=== PATIENT | male | born 1970 | race Caucasian/White ===

== ENCOUNTER 2016-12-02 12:58 | Emergency (ER) | payer OTHER ==
[~2016-12-02] VITALS: Ht 167.6 cm; Wt 122.5 kg
--- NOTE | 2016-12-02 13:07 | PHYS DOC ---
Adult General Chief Complaint Chief Complaint: LOWER EXT PAIN HPI HPI Patient is a 46-year-old male who was helping move some rock and was pushing up a tree stump when he felt a snap in his right calf area. He says that he cannot bear any weight on it and he feels intense pain and spasm. There is no bony tenderness but he appears to have a small divot in his right calf area. He denies any distal weakness numbness or tingling. Review of Systems Review of Systems Constitutional: Denies fever or chills [] GI: Denies abdominal pain, nausea, vomiting, bloody stools or diarrhea []a or hematuria [] Musculoskeletal: Denies back pain or joint pain [] Integument: Denies abrasions or lacerations Neurologic: Denies headache, focal weakness or sensory changes [] Physical Exam Physical Exam Constitutional: Well developed, well nourished, no acute distress, non-toxic appearance. [] Cardiovascular:Heart rate regular rhythm, no murmur [] Lungs & Thorax: Bilateral breath sounds clear to auscultation [] Abdomen: Bowel sounds normal, soft, no tenderness, no masses, no pulsatile masses. [] Skin: Warm, dry, no erythema, no rash. [] Back: No tenderness, no CVA tenderness. [] Extremities: Right Achilles tendon is intact with negative Braswell test. In his mid right calf there is a small divot that is noticeable especially when compared to left. Compartments soft with no signs of compartment syndrome. Neurologic: Alert and oriented X 3, normal motor function, normal sensory function, no focal deficits noted. [] EKG EKG [] Radiology/Procedures Radiology/Procedures [] Course & Med Decision Making Course & Med Decision Making I do not believe that he suffered an Achilles tear as his Achilles appears quite intact but it does appear that he has a muscle tear in the muscle belly of his calf. He has no distal weakness numbness or tingling on history or physical exam. His compartments are soft and he has strong distal pulses. Patient will be put in an Mathew wrap with a soft ankle splint to ensure partial plantar flexion. He will be made nonweightbearing and told to follow with his primary care provider for an MRI. He can then follow with orthopedic surgery to see if there is any possible surgical procedure that is necessary however he will likely just be nonweightbearing and have it healed over time. Patient aware and agreeable with plan for discharge and verbalized understanding of the need for follow-up in the strict ER return precautions discussed including worsening pain swelling or other general concerns. Boom Disclaimer Dragon Disclaimer This chart was dictated in whole or in part using Voice Recognition software in a busy, high-work load, and often noisy Emergency Department environment. It may contain unintended and wholly unrecognized errors or omissions. Departure Departure: Impression: Primary Impression: Muscle spasm of calf Additional Impression: Muscle tear Disposition: HOME, SELF-CARE Condition: GOOD Referrals: [facility] Patient Instructions: Muscle Tear Additional Instructions: Rest your leg put ice on it elevated and compress it. Take 400 mg of ibuprofen every 6 hours and the Percocet for breakthrough pain. The Valium is for spasm. Try and get an MRI through your PCP and then follow with orthopedic doctor to go over treatment options if necessary. Scripts Diazepam (VALIUM) 5 Mg Tablet 5 MG PO TID, #10 TAB Prov: YOHANNES SOLER DO 12/02/16 Oxycodone Hcl/Acetaminophen (PERCOCET 5-325 MG TABLET) 1 Each Tablet 1-2 TAB PO Q4-6HRS, #20 TAB Prov: YOHANNES SOLER DO 12/02/16 Problem Qualifiers YOHANNES SOLER DO Dec 02, 2016 13:07
[2016-12-02 13:09] VITALS: BP 150/87
[2016-12-02] MEDS ORDERED: DIAZ5TAB PO (13:30)
[2016-12-02] MEDS ORDERED: OXYC-323 PO (13:30)
[2016-12-02] MEDS ORDERED: IBUPROFEN 600 MG TABLET. PO ONE (13:35)
== END 2016-12-02 13:43 | disposition home or self-care (01) ==
LOC: ER 12:58
DX: S86.911A Strain of unspecified muscle(s) and tendon(s) at lower leg level, right leg, initial encounter (principal); W22.8XXA Striking against or struck by other objects, initial encounter; Y93.89 Activity, other specified; Y99.8 Other external cause status; Y92.89 Other specified places as the place of occurrence of the external cause
CPT/HCPCS: 29515; 99284-25

== ENCOUNTER 2017-09-02 16:21 | Emergency (ER) | payer SELFPAY ==
[~2017-09-02] VITALS: Ht 167.6 cm; Wt 117.9 kg
[~2017-09-02 16:21] MED LIST: DIAZ5TAB PO; OXYC-323 PO
[2017-09-02] MEDS ORDERED: LIDOCAINE 2% 20 ML VIAL. IJ ONE (17:15)
[2017-09-02] MEDS ORDERED: ORPHENADRINE CITRATE 60 MG/2 ML VIAL. IM ONE (17:15)
[2017-09-02] MEDS ORDERED: TRAM-48 PO (17:49)
--- NOTE | 2017-09-02 17:50 | PHYS DOC ---
Past History Past Medical History: Diabetes, Hypothyroid Past Surgical History: Tonsillectomy, Other Alcohol Use: Rarely Drug Use: None Adult General Chief Complaint Chief Complaint: LOWER EXT PAIN HPI HPI Patient is a 47 year old male who presents with complaint of left calf pain. Patient states that he was helping lift and carry furniture when he felt a pop in his left calf. Patient states that the calf muscle immediately tensed up and spasms. The patient states that he has been having twitches in the left calf and states that his symptoms have been worsening if he tries to dorsiflex his left foot. Patient states that he is keeping his left foot and a plantar flexed position partly due to spasm and partly discomfort. Patient rates his pain as 9 out of 10 in the calf. Patient denies any other injuries. Patient took 800 mg of ibuprofen prior to arrival with no relief in symptoms. Review of Systems Review of Systems Constitutional: Denies fever or chills [] Eyes: Denies change in visual acuity, redness, or eye pain [] HENT: Denies nasal congestion or sore throat [] Respiratory: Denies cough or shortness of breath [] Cardiovascular: No additional information not addressed in HPI [] GI: Denies abdominal pain, nausea, vomiting, bloody stools or diarrhea [] : Denies dysuria or hematuria [] Musculoskeletal: Left calf injury[] Integument: Denies rash or skin lesions [] Neurologic: Denies headache, focal weakness or sensory changes [] Endocrine: Denies polyuria or polydipsia [] All other systems were reviewed and found to be within normal limits, except as documented in this note. Current Medications Current Medications Current Medications Medications (Trade) Dose Ordered Sig/Cecilio Start Time Stop Time Status Last Admin Dose Admin Lidocaine HCl 20 ml 1X ONCE 09/02/17 17:15 09/02/17 17:16 DC 09/02/17 17:34 20 ML Orphenadrine Citrate (Norflex) 60 mg 1X ONCE 09/02/17 17:15 09/02/17 17:16 DC 09/02/17 17:31 60 MG Allergies Allergies Allergies Coded Allergies Type Severity Reaction Last Updated Verified No Known Drug Allergies 12/02/16 No Physical Exam Physical Exam Constitutional: Alert, afebrile, appears in moderate discomfort. [] HENT: Normocephalic, atraumatic, bilateral external ears normal, oropharynx moist, no oral exudates, nose normal. [] Eyes: PERRLA, EOMI, conjunctiva normal, no discharge. [] Neck: Normal range of motion, no tenderness, supple, no stridor. [] Cardiovascular:Heart rate regular rhythm, no murmur [] Lungs & Thorax: Bilateral breath sounds clear to auscultation [] Abdomen: Bowel sounds normal, soft, no tenderness, no masses, no pulsatile masses. [] Skin: Warm, dry, no erythema, no rash. [] Back: No tenderness, no CVA tenderness. [] Extremities: Left foot plantar flexed, calf muscle with palpable spasm and tightness, tenderness to palpation along the distal medial gastronemius body, mild to moderate muscle body soft tissue swelling, no cyanosis, no clubbing, no edema. [] Neurologic: Alert and oriented X 3, normal motor function, normal sensory function, no focal deficits noted. [] Current Patient Data Vital Signs Vital Signs Date Time Temp Pulse Resp B/P (MAP) Pulse Ox O2 Delivery O2 Flow Rate FiO2 09/02/17 16:25 94 22 98 Room Air EKG EKG Not performed[] Radiology/Procedures Radiology/Procedures Not performed[] Course & Med Decision Making Course & Med Decision Making Pertinent Labs and Imaging studies reviewed. (See chart for details) Patient received IM Norflex and received localized injection of lidocaine 2% at the point of tenderness in the left calf. Patient received mild to moderate improvement and range of motion has improved since treatment. The patient will continue on outpatient treatment with Ultram. Patient also states that he has prescription of Flexeril at home which I advised him to take as directed on the bottle as needed for symptoms. Advised patient follow-up with his orthopedic doctor within the next 3-5 days for reevaluation and return to emergency department for any worsening symptoms. Patient voiced understanding and in agreement with treatment plan. Dragon Disclaimer Dragon Disclaimer This electronic medical record was generated, in whole or in part, using a voice recognition dictation system. Departure Departure: Impression: Primary Impression: Muscle spasm of calf Disposition: HOME, SELF-CARE Condition: IMPROVED Referrals: PCP,NO (PCP) Patient Instructions: Muscle Strain Additional Instructions: It appears you have suffered a significant strain to your left calf muscle. You will need to follow-up with your orthopedic doctor in the next 3-5 days for reevaluation to see if there is any further soft tissue damage. Return to the emergency department for any worsening symptoms. Scripts Tramadol Hcl (ULTRAM) 50 Mg Tablet 50-100 MG PO Q6-8HRS Y for PAIN, #30 TAB Prov: LINDA JENKINS MD 09/02/17 LINDA JENKINS MD Sep 02, 2017 17:50
[2017-09-02] MEDS ORDERED: traMADol 50 MG TABLET PO ONE (18:00)
[2017-09-02 18:05] VITALS: BP 144/94
== END 2017-09-02 18:07 | disposition home or self-care (01) ==
LOC: ER 16:21
DX: M62.831 Muscle spasm of calf (principal); E11.9 Type 2 diabetes mellitus without complications; E03.9 Hypothyroidism, unspecified
CPT/HCPCS: 96372; 99283; J2360; J2001